=== PATIENT | male | born 1990 | race Caucasian/White ===

== ENCOUNTER 2023-09-13 09:53 | Emergency (ER) | payer MEDICAID ==
[~2023-09-13] VITALS: Ht 160 cm; Wt 52.3 kg
[2023-09-13 10:07] VITALS: BP 105/68; PULSE 65; RESP 18; TEMP 98.5; O2SAT 100
== END 2023-09-13 11:54 | disposition home or self-care (01) ==
LOC: ER 09:53
DX: M25.441 Effusion, right hand (principal)
CPT/HCPCS: 99281